=== PATIENT | female | born 1950 | race African-American/Black ===

== ENCOUNTER 2016-12-21 22:11 | Emergency (ER) | payer MEDICARE, MEDICAID ==
[~2016-12-21] VITALS: Ht 154.9 cm; Wt 70.3 kg
[2016-12-21] MEDS ORDERED: cefTRIAXone 1 GM in NS 55 ML IVPB ONE (23:15)
[2016-12-22 00:06] LABS: BASOPHILS % (AUTO) 1.1 % (0.0-2.0); EOSINOPHILS % (AUTO) 2.5 % (0.0-3.0); LYMPHOCYTES % (AUTO) 22.7 % (20.0-45.0); MEAN CORPUSCULAR HEMOGLOBIN 31.7 PG (27.0-31.0); MEAN CORPUSCULAR HGB CONC 32.8 G/DL (32.0-36.0); MEAN CORPUSCULAR VOLUME 97 FL (80-99); MEAN PLATELET VOLUME 7.5 FL (6.5-10.1); MONOCYTES % (AUTO) 4.8 % (1.0-10.0); NEUTROPHILS % (AUTO) 68.9 % (45.0-75.0); PLATELET COUNT 462 K/UL (150-450); RED BLOOD COUNT 4.38 M/UL (4.20-5.40); RED CELL DISTRIBUTION WIDTH 11.8 % (11.6-14.8); WHITE BLOOD COUNT 12.2 K/UL (4.8-10.8)
[2016-12-22 00:30] LABS: POTASSIUM 4.1 mEQ/L (3.4-4.9)
[2016-12-22] MEDS ORDERED: Morphine Sulfate 2mg/ml Inj IVP ONE (00:30)
[2016-12-22 00:36] LABS: CALCIUM 9.9 mg/dL (8.6-10.2); CREATININE 1.2 mg/dL (0.5-0.9); GLOMERULAR FILTRATION RATE 54.7 mL/min (>60); TOTAL PROTEIN 7.1 g/dL (6.6-8.7)
[2016-12-22 00:39] LABS: ALBUMIN/GLOBULIN RATIO 1.6 (1.0-2.7)
[2016-12-22] MEDS ORDERED: NORCO 5-325 TA1 EACH ORAL (01:42)
[2016-12-22] MEDS ORDERED: BACTRIM DS TAB1 EAC1 ORAL (01:42)
[2016-12-22 02:22] VITALS: BP 135/85
[2016-12-22 02:23] VITALS: BP 135/85
--- NOTE | 2016-12-22 09:13 | Diagnostic Imaging Report ---
Indication: Headache Technique: Contiguous 5 mm thick transaxial imaging of the head obtained in a Siemens Sensation [address] scanner after intravenous administration of non-ionic contrast. Soft tissue and bone windows generated. Total Dose length Product (DLP): [address] Dose Index Volume (CTDIvol): 70.38 mGy Comparison: none Findings: The size and configuration of The cortical sulci, basal cisterns, and ventricles are within normal limits. There is no mass effect, midline shift, or edema identified. There is no evidence of acute hemorrhage (with the caveat that intravenous contrast was given which significantly decreases detection of intracranial blood) or abnormal intra-axial or extra-axial fluid collections. No abnormal enhancement identified. Bony mineralization appears abnormal. The diploic marrow space is abnormally dense for age and appears somewhat widened. Findings are highly nonspecific. Please correlate clinically. Impression: Negative contrast CT of the head. Abnormal bones. Findings are nonspecific and may indicate a "cellular" marrow (e.g. causes of marrow proliferation or replacement, etc.). Clinical correlation is suggested. Note: Evaluation for hemorrhage is limited since IV contrast was given.
--- NOTE | 2016-12-22 10:04 | Diagnostic Imaging Report ---
Indication: Neck pain. Technique: Continuous helical imaging of the neck was obtained transaxially from the skull base to the upper thoracic spine during intravenous administration of nonionic contrast. 2-D coronal and sagittal reformatted images were obtained. Total Dose length Product (DLP): [address] Dose Index Volume (CTDIvol): 21 mGy Comparison: None Findings: There is prominent aryepiglottic full thickening along the posterior aspect of the supraglottic airway seen for example on images 27-29, series 5 and image 30 series 2). Direct laryngoscopy recommended. The epiglottis is normal. The vallecula appear symmetric. The true cords are unremarkable. Thyroid lamina and other cartilage appears unremarkable. Visualized part of the nasopharynx and oropharynx, hypopharynx appear unremarkable otherwise. No adenopathy seen. There is thyromegaly present with heterogeneous areas of lower attenuation throughout the gland. Evaluation with ultrasound could be done for better assessment. Some arterial vascular calcifications noted throughout the visualized carotid arteries as well as involving the visualized aortic arch. 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 There is narrowing of intervertebral discs and accompanying endplate osteophyte formation. Hypertrophied facet joints also demonstrated. Associated smooth reversal of the typical lordotic curvature noted. Impression: Some prominence of the aryepiglottic folds and posterior wall of the supraglottic airway noted. Findings may be spurious but further evaluation with ENT and direct laryngoscopy is indicated. Thyromegaly and heterogeneous appearance. Ultrasound evaluation suggested. Atherosclerotic vascular disease Cervical spondylosis [facility] has communicated the preliminary results to the Emergency Department. Their findings are largely concordant with this report. The CT scanner at [facility] is accredited by the [employer] and the scans are performed using protocols designed to limit radiation exposure to as low as reasonably achievable to attain images of sufficient resolution adequate for diagnostic evaluation.
--- NOTE | 2016-12-25 07:26 | Emergency Room Report ---
History of Present Illness General Chief Complaint: Earache Source: Patient Present Illness HPI Patient is a 66-year-old female who presented after having increased left-sided earache. Patient reported having gradual onset of symptoms. She reported being diabetic. She also reports having decreased hearing in the left ear associated with some left-sided swelling and pain to the side of her face. Patient's family member had noticed some discoloration to the left side of her face. She denied any fever. She had not been vomiting. She denied neck stiffness. She reported having moderate pain Allergies: Coded Allergies: No Known Allergies (Unverified , 04/14/15) Patient History Past Medical History: see triage record Last Menstrual Period: NONE Now: Yes : 3 Reviewed Nursing Documentation: PMH: Agreed, PSxH: Agreed Nursing Documentation-PMH Hx Cardiac Problems: Yes - "heart attack" 30 years ago Hx Asthma: Yes Hx Diabetes: Yes - OSTEOPOROSIS Review of Systems All Other Systems: negative except mentioned in HPI Physical Exam Vital Signs Date Time Temp Pulse Resp B/P Pulse Ox O2 Delivery O2 Flow Rate FiO2 12/21/16 22:29 98.2 96 20 139/67 100 Room Air Sp02 EP Interpretation: reviewed, normal General Appearance: normal inspection, well appearing, no apparent distress, alert, GCS 15 Head: atraumatic ENT: hearing grossly normal, normal voice, other - left side ear canal swelling , no erythema, minimimal if any soft tissue swelling to left side of face Neck: normal inspection, full range of motion, supple, no bony tend Respiratory: normal inspection, lungs clear, normal breath sounds, no respiratory distress, no retraction, no wheezing Cardiovascular #1: regular rate, rhythm, no edema Gastrointestinal: normal inspection, normal bowel sounds, non tender, soft, no guarding, no hernia Genitourinary: no CVA tenderness Musculoskeletal: normal inspection, back normal, normal range of motion Neurologic: normal inspection, alert, oriented x3, responsive, income tax consultant III-XII nml as tested, speech normal Psychiatric: normal inspection, judgement/insight normal, mood/affect normal Skin: normal inspection, normal color, no rash Medical Decision Making Diagnostic Impression: Primary Impression: Otitis externa ER Course Patient presented for ear pain. Differential diagnosis included was not limited to otitis media, malignant otitis externa, foreign body, cellulitis, mastoiditis, carotid dissection, myocardial infarction among others. Because of complexity of patient's case laboratory testing and imaging studies were ordered. CT imaging of the patient was ordered due to the patient's history diabetes and possible malignant otitis externa. Patient was noted to have unremarkable CT scan read by radiologist. The patient was given copy of her CT report. Left sensation elevated white blood count. Patient was given IV antibiotics. She is given prescription for antibiotics.The patient is advised to follow up with primary care doctor in 1-2 days. Patient is advised to return if any worsening condition or if any changes in status that are concerning. Labs Test 12/21/16 23:50 White Blood Count 12.2 K/UL (4.8-10.8) Red Blood Count 4.38 M/UL (4.20-5.40) Hemoglobin 13.9 G/DL (12.0-16.0) Hematocrit 42.4 % (37.0-47.0) Mean Corpuscular Volume 97 FL (80-99) Mean Corpuscular Hemoglobin 31.7 PG (27.0-31.0) Mean Corpuscular Hemoglobin Concent 32.8 G/DL (32.0-36.0) Red Cell Distribution Width 11.8 % (11.6-14.8) Platelet Count 462 K/UL (150-450) Mean Platelet Volume 7.5 FL (6.5-10.1) Neutrophils (%) (Auto) 68.9 % (45.0-75.0) Lymphocytes (%) (Auto) 22.7 % (20.0-45.0) Monocytes (%) (Auto) 4.8 % (1.0-10.0) Eosinophils (%) (Auto) 2.5 % (0.0-3.0) Basophils (%) (Auto) 1.1 % (0.0-2.0) Sodium Level 139 mEQ/L (135-145) Potassium Level 4.1 mEQ/L (3.4-4.9) Chloride Level 97 mEQ/L (98-107) Carbon Dioxide Level 29 mEQ/L (20-30) Anion Gap 13 (5-15) Blood Urea Nitrogen 21 mg/dL (7-23) Creatinine 1.2 mg/dL (0.5-0.9) Estimat Glomerular Filtration Rate 54.7 mL/min (>60) Glucose Level 348 mg/dL (74-106) Calcium Level 9.9 mg/dL (8.6-10.2) Total Bilirubin 0.2 mg/dL (0.0-1.2) Aspartate Amino Transf (AST/SGOT) 11 U/L (5-40) Alanine Aminotransferase (ALT/SGPT) 17 U/L (3-33) Alkaline Phosphatase 109 U/L (35-104) Total Protein 7.1 g/dL (6.6-8.7) Albumin 4.4 g/dL (3.5-5.2) Globulin 2.7 g/dL Albumin/Globulin Ratio 1.6 (1.0-2.7) Last Vital Signs Date Time Temp Pulse Resp B/P Pulse Ox O2 Delivery O2 Flow Rate FiO2 12/22/16 02:23 98.2 81 18 135/85 99 Room Air Status: improved Disposition: HOME, SELF-CARE Condition: Stable Scripts Hydrocodone Bit/Acetaminophen 5-325* (NORCO 5-325*) 1 Each Tablet 1 TAB ORAL Q6H Y for For Pain, #10 TAB 0 Refills Prov: Jay Jay Patel 12/22/16 Trimethoprim/Sulfamethoxazole 160/800* (BACTRIM DS TABLET*) 1 Each Tablet 1 TAB ORAL Q12H, #14 TAB 0 Refills Prov: Jay Jay Patel 12/22/16 Patient Instructions: Otitis Externa, [id number] Jay Jay Patel Dec 25, 2016 07:26
== END 2016-12-22 02:28 | disposition home or self-care (01) ==
LOC: EMR 22:52
DX: H60.90 Unspecified otitis externa, unspecified ear (principal); E11.9 Type 2 diabetes mellitus without complications; J45.909 Unspecified asthma, uncomplicated; M81.0 Age-related osteoporosis without current pathological fracture; I25.2 Old myocardial infarction
CPT/HCPCS: 36415; 70460; 70491; 80053; 85025; 96374; 96375; 99284; J0696; J2270; Q9967